=== PATIENT | female | born 1975 | race Caucasian/White ===

== ENCOUNTER 2017-03-29 09:43 | Emergency (ER) | payer SELFPAY ==
[2017-03-29] MEDS ORDERED: Ketorolac Tromethamine 30 MG/ML VIAL ONE (10:53)
--- NOTE | 2017-03-29 12:26 | RAD ---
LUMBAR SPINE 3 VIEWS: Date: 03/29/17 HISTORY: 41-year-old female with back pain. FINDINGS: Minimal lumbar disc osteophytosis changes are noted. There is mild facet arthrosis. No evidence for acute compression fracture or significant malalignment. IMPRESSION: Mild lumbar spondylosis. No acute fracture or dislocation. POS: [facility]
== END 2017-03-29 12:33 | disposition home or self-care (01) ==
LOC: NAV ERS 09:43
DX: M47.896 Other spondylosis, lumbar region (principal); F17.210 Nicotine dependence, cigarettes, uncomplicated
CPT/HCPCS: 72100; 96372; 96374; J1885; J2270